=== PATIENT | male | born 1965 ===

== ENCOUNTER → 2023-11-17 | Outpatient (CLI) | payer MEDICARE ==
[~2023-11-17] VITALS: Ht 172.7 cm; Wt 89.0 kg
[2023-11-17 13:26] VITALS: BP 135/76; PULSE 76; RESP 20; TEMP 98.7; O2SAT 98
== END | disposition home or self-care (01) ==
LOC: SRCNTR 12:55
PROVIDERS: ATTEND Internal Medicine Pulmonary Disease
DX: R05.9 Cough, unspecified (principal); R06.09 Other forms of dyspnea; J98.11 Atelectasis; A60.00 Herpesviral infection of urogenital system, unspecified; K21.9 Gastro-esophageal reflux disease without esophagitis; N40.0 Benign prostatic hyperplasia without lower urinary tract symptoms; F32.A Depression, unspecified; Z98.890 Other specified postprocedural states
CPT/HCPCS: G0463; Z7500